=== PATIENT | female | born 1955 | race Caucasian/White ===

== ENCOUNTER → 2016-12-16 | Day surgery (SDC) | payer OTHER ==
[~2016-12-16] MED LIST: ACETAMINOPHEN/HYDROcodone 325 MG/5 MG TAB ONE; ALBU17I INH; AMPH1CAP4; BENI5TAB4 PO; BUPIVACAINE/EPINEPHRINE 0.5% 50 ML VIAL ONE; CYCL5TAB PO; DOXY100T PO; FISH100020 PO; FOLI5CAP; HYDROCORTISONE SOD SUCCINATE 100 MG VIAL ONE; KETOROLAC TROMETHAMINE 30 MG/ML (IVP) VIAL IV PUSH ONE; LACTATED RINGER'S 1000 ML INJ 1,000 ML ONE; LORT5TAB PO; METH2.5 PO; METH4TAB6 PO; MIDAZOLAM HCL 2 MG/2 ML VIAL ONE; MORPHINE SULFATE 4 MG/ML INJ ONE; NAPR550 PO; ONDANSETRON HCL 4 MG/2 ML VIAL IV PUSH ONE; PROPOFOL 200 MG/20 ML AMP IV ONE; ROBA750T3 PO; TURM500C3; ceFAZolin INJ 1,000 MG VIAL ONE
--- NOTE | 2016-12-16 13:29 | TN ---
cc: ALLISON CHRISTIAN DATE OF OPERATION 12/16/2016 PREOPERATIVE DIAGNOSIS 1. Internal derangement of the right knee. 2. Probable medial and lateral meniscus tear right knee. POSTOPERATIVE DIAGNOSIS 1. Complex tear posterior medial meniscus. 2. Complex tear lateral meniscus. PROCEDURE 1. Arthroscopy of the right knee. 2. Arthroscopic posterior medial meniscectomy. 3. Arthroscopic partial lateral meniscectomy 4. Abrasion chondroplasty of the medial femoral condyle and lateral femoral condyle. SURGEON Allison Christian MD ANESTHESIA General ESTIMATED BLOOD LOSS Minimal INDICATION This is a 68-year-old female with continued pain, locking, catching and swelling of the knee. Investigative studies are consistent with a torn medial and lateral meniscus. She presents for surgical treatment. PROCEDURE The patient was brought to the operating room, anesthetized in the supine position. The right leg was scrubbed with alcohol followed by Hibiclens, followed by Chloraprep and draped sterilely. Antibiotics were given within a one hour time window and time-out was done. Inflow was established anterior and medially. The knee was inflated. There was a small effusion which was drained. The cameras was introduced and the suprapatellar pouch was unremarkable. The retropatellar surface showed minimal grade one changes. There was an asymptomatic medial synovial plica. The medial compartment showed a tear of the posterior horn of the medial meniscus and a degenerative tear of the posterior portion of the medial meniscus. The ACL was normal. The lateral compartment showed degenerative tearing of the lateral meniscus with a detached area near the posterior horn and significant fraying anteriorly. A separate spinal needle was introduced along the lateral joint line. A separate incision was made. Straight and angled meniscal biters were used to debride the meniscus, medial and laterally. A meniscal shaver was utilized. All fragments floated free and the joint edges were smoothed down. The wound was irrigated copiously. Hemostasis was controlled. Quarter percent Marcaine with epinephrine was injected. The portals were closed with Steri-Strips and Benzoin. The patient was awakened and taken to the recovery room in satisfactory. MD SHAJI Cummings/DELTA /1:03 PM /1:20 PM
== END | disposition home or self-care (01) ==
LOC: ESDC 10:06
PROVIDERS: ATTEND Orthopaedic Surgery Orthopaedic Surgery of the Spine
DX: S83.231A Complex tear of medial meniscus, current injury, right knee, initial encounter (principal); S83.271A Complex tear of lateral meniscus, current injury, right knee, initial encounter
CPT/HCPCS: 01400; 29880; J0690; J1720; J1885; J2250; J2270; J2405; J3010; J7120